=== PATIENT | male | born 1945 | race Caucasian/White ===

== ENCOUNTER 2020-06-13 13:56 | Inpatient (IN) | payer MEDICARE, BC ==
[~2020-06-13] VITALS: Ht 165.1 cm; Wt 84.4 kg
--- NOTE | 2020-06-13 14:17 | NUR ---
Switchboard Operator Assistant assumes care, 1st contact with patient: Our admission discharge rn William is giving this patient a full bath in ER bed 5. Patient is awake, alert, oriented to name, date & situation, denies any pains@the moment with dried feces and urine seen all over his skin, respiration:easy, patient is on 5150 psych HOLD today since 1106 am for gravely disabled & danger to self, pending MD evaluation
--- NOTE | 2020-06-13 14:35 | NUR ---
UNABLE TO OBTAIN HOME MEDICATION INFORMATION. PT DOES NOT REMEMBER HOME MEDS NAMES AND DOSAGES.
--- NOTE | 2020-06-13 14:48 | NUR ---
MD@bedside, medical screening exam in progress
[2020-06-13 15:18] LABS: BASOPHILS % (AUTO) 0.4 % (0.0-2.0); EOSINOPHILS # (AUTO) 0.1 K/uL (0.0-0.7); EOSINOPHILS % (AUTO) 0.9 % (0.0-7.0); HEMATOCRIT 45.4 % (36.7-47.1); HEMOGLOBIN 15.5 g/dL (12.5-16.3); LYMPHOCYTES # (AUTO) 0.8 K/uL (20.0-40.0); LYMPHOCYTES % (AUTO) 9.9 % (20.5-51.5); MEAN CORPUSCULAR HEMOGLOBIN 31.2 uug (23.8-33.4); MEAN CORPUSCULAR HGB CONC 34 g/dL (32.5-36.3); MEAN CORPUSCULAR VOLUME 91.3 fL (73.0-96.2); MONOCYTES % (AUTO) 12.5 % (0.0-11.0); NEUTROPHILS # (AUTO) 6.4 K/uL (1.8-8.9); NEUTROPHILS % (AUTO) 76.3 % (38.5-71.5); PLATELET COUNT (AUTO) 162 K/uL (152-348); RED BLOOD CELL COUNT(AUTO) 4.97 MIL/uL (4.06-5.63); WHITE BLOOD COUNT (AUTO) 8.4 K/uL (3.6-10.2)
[2020-06-13 15:22] LABS: ALANINE AMINOTRANSFERASE 30 U/L (16-63); ALKALINE PHOSPHATASE 77 U/L (50-136); ASPARTATE AMINOTRANSFERASE 27 U/L (15-37); BILIRUBIN,DIRECT 0.2 mg/dL (0.0-0.2); BILIRUBIN,TOTAL 0.5 mg/dL (0.2-1.0); CARBON DIOXIDE 29 mmol/L (21-32); CHLORIDE 97 mmol/L (98-107); CREATINE KINASE, TOTAL 25 U/L (39-308); GLUCOSE 135 mg/dL (74-106); TOTAL PROTEIN, SERUM 7.4 g/dL (6.4-8.2); UREA NITROGEN, BLOOD 27 mg/dL (7-18)
[2020-06-13 15:26] LABS: ACETAMINOPHEN < 2.0 ug/mL (10-30)
[2020-06-13 15:27] LABS: ETHANOL < 3 MG/DL (0-0)
[2020-06-13 15:29] LABS: THYROID STIMULATING HORMONE 1.705 mIU/mL (0.358-3.740)
--- NOTE | 2020-06-13 15:44 | NUR ---
Patient is medically cleared by Dr Degroot.
--- NOTE | 2020-06-13 16:04 | NUR ---
Patient is now eating hot food tray with good appetite. Patient will go to [facility] as soon as possible.
[2020-06-13 16:30] VITALS: BP 112/45
[2020-06-13] MEDS ORDERED: ACETAMINOPHEN 325 MG TABLET PO PRN (16:30)
[2020-06-13] MEDS ORDERED: LORAZEPAM 0.5 MG TABLET PO PRN (16:30)
[2020-06-13] MEDS ORDERED: MAG HYDROX/AL HYDROX/SIMETH 30 ML LIQUID UDC PO PRN (16:30)
[2020-06-13] MEDS ORDERED: MAGNESIUM HYDROXIDE 30 ML LIQUID UDC PO PRN (16:30)
[2020-06-13] MEDS ORDERED: BLOOD SUGAR DIAGNOSTIC 1 EACH STRIP VI ONE (16:30)
[2020-06-13] MEDS ORDERED: TEMAZEPAM 7.5 MG CAPSULE PO PRN (16:30)
--- NOTE | 2020-06-13 16:30 | NUR ---
Pt received from ER at 1620 via wheelchair. Report obtained from AYLIN Franco. Per hold, pt was refusing to get out of his bed, not leaving his room. When Pt arrived in ER, per nursing staff, pt was covered in dry feces and was severely malodorous and unkempt. Upon face to face evaluation, pt is not cooperating, tells the staff to go away. Pt refused his family to be notified and refused to sigh paperwork. Pt does not say why he was brought in and covers his face. Pt is oriented to self.
[2020-06-13 20:00] VITALS: BP 148/64
--- NOTE | 2020-06-14 06:22 | NUR ---
GPS: Remain calm and cooperative with meds and care. incontinent assisted with adl's. kept clean and dry. slept 9.15 hrs through the night. continue plan of care.
[2020-06-14 07:30] VITALS: BP 145/76
[2020-06-14] MEDS ORDERED: DEXTROSE 50% 50 ML DISP.SYRIN IV PRN (10:00)
[2020-06-14] MEDS: BLOOD SUGAR DIAGNOSTIC 1 EACH STRIP VI SCH ×3 (11:30→21:00)
[2020-06-14] MEDS: OLANZAPINE 5 MG TABLET PO SCH ×2 (12:45→21:00)
[2020-06-14 16:00] VITALS: BP 124/81
--- NOTE | 2020-06-14 16:40 | NUR ---
GPS: Nursing Notes: Destructive Behavior to Self: Patient is awake and responding to his name, impaired judgment, resistant with nursing care, poor grooming, gets easily irritable when redirected, refusing his accu-checks, stated "Leave alone...Man..", gets easily argumentative, no interactions with his roommates, evasive when questioned by staff, unable to formulate a viable plan for self care, continue with treatment plan.
--- NOTE | 2020-06-14 20:00 | NUR ---
RECEIVED PATIENT IN HIS ROOM. HE IS NOTED SLEEPING BUT EASILY AROUSABLE. PT NOTED EASILY IRRITABLE, EVASIVE, ISOLATIVE AND WITHDRAWN TO HIS ROOM. HE IS UNABLE TO HAVE A MEANINGFUL CONVERSATION WITH THIS DAMASCENER. HE STATED, "GET OUT". "I DON'T NEED TO TALK TO YOU". PATIENT WAS REASSURED AND REORIENTED, HE IS NOTED WITH POOR INSIGHT AND JUDGMENT TO THE REASON FOR HER ADMISSION TO [facility]. PATIENT V/S STABLE/ HE IS REASSURED FOR HIS SAFETY. SAFETY AND FALL PRECAUTION IN PLACE. WILL CONTINUE TO MONITOR.
[2020-06-14 20:18] VITALS: BP 136/78
--- NOTE | 2020-06-14 22:00 | NUR ---
PATIENT REFUSED ZYPREXA 5MG Q12HRS. HE ALSO REFUSED ACCUCHECKS. THE IMPORTANCE OF COMPLIANT WITH MEDICATION REGIMENT AND LABS TO IMPROVED SXS WERE EXPLAINED TO PATIENT, YET REFUSED. HE IS REASSURED FOR HIS SAFETY. SAFETY AND FALL PRECAUTION IN PLACE, WILL CONTINUE TO MONITOR.
[2020-06-15] MEDS: BLOOD SUGAR DIAGNOSTIC 1 EACH STRIP VI SCH ×4 (06:32→21:00)
--- NOTE | 2020-06-15 07:23 | NUR ---
patient slept for approx 6 hrs through the night. He was able to comply with Accu ckeck (205). patient noted less irritable. able to verbalized feelings. Shower given. will continue to monitor.
[2020-06-15] MEDS: INSULIN REGULAR, HUMAN 300 UNIT/3 ML VIAL SQ PRN (08:19)
[2020-06-15] MEDS: OLANZAPINE 5 MG TABLET PO SCH ×2 (08:35→21:00)
[2020-06-15] MEDS: OLANZAPINE 2.5 MG TABLET PO SCH ×2 (12:32→13:45)
[2020-06-15] MEDS ORDERED: OLANZAPINE 5 MG TABLET PO SCH ×2 (13:00)
--- NOTE | 2020-06-15 14:51 | NUR ---
GPS: Nursing Notes: Destructive Behavior to Self: Patient is awake and responding to his name, poor anger management, gets easily irritable when redirected, refusing his medications this am stated "Get the fuck out here.. I want to sleep..", unkempt appearance, ambulatory, but moving around on wheelchair, refusing to participate in therapeutic groups, believes that he is leaving today, stated "I am fine.. I am leaving..", unable to formulate a viable plan for self care, loud and pressured speech at times, continue with treatment plan.
[2020-06-15] MEDS: GLUCERNA SHAKE VANILLA 237 ML CAN PO SCH (17:01)
[2020-06-15] MEDS: Z GUARD REMEDY PASTE 57 GM TUBE TOP PRN (17:52)
[2020-06-16 07:30] VITALS: BP 146/60
[2020-06-16] MEDS: BLOOD SUGAR DIAGNOSTIC 1 EACH STRIP VI SCH ×4 (07:32→21:00)
[2020-06-16] MEDS: OLANZAPINE 2.5 MG TABLET PO SCH ×2 (08:31→13:08)
[2020-06-16] MEDS: INSULIN REGULAR, HUMAN 300 UNIT/3 ML VIAL SQ PRN (08:32)
[2020-06-16] MEDS: Z GUARD REMEDY PASTE 57 GM TUBE TOP PRN (08:32)
[2020-06-16] MEDS: GLUCERNA SHAKE VANILLA 237 ML CAN PO SCH ×2 (08:32→17:23)
--- NOTE | 2020-06-16 10:47 | NUR ---
LESLIE Family Contact: LESLIE spoke with , Jeannine ([phone]) and discussed treatment and discharge plan. Jeannine also provided collateral information.
--- NOTE | 2020-06-16 10:47 | NUR ---
LESLIE Initial Discharge Plan: Patient currently resides at home [address] [place] [address] with , Jeannine ([phone]). LESLIE spoke with patient's and she would like patient to return home upon discharge and she will pick him up. LESLIE will continue to work with patient, family, and MD to ensure a safe and proper discharge plan.
--- NOTE | 2020-06-16 10:50 | NUR ---
Firearms Report: Flake Miller Helper completed and submitted a [employer] firearms report for 5150 danger to himself and grave disability certifications. A copy of report has been placed in patient chart.
[2020-06-16] MEDS ORDERED: ROSU20TA2 PO (13:43)
--- NOTE | 2020-06-16 14:37 | NUR ---
WOUND CARE CONSULT: PT PRESENTS WITH RASH TO BUTTOCKS, PRESENT ON ADMISSION. PT HAS BEEN SCRATCHING HIS BUTTOCKS PER NURSES. RECOMMENDATIONS MADE FOR SKIN CARE AND PROTECTION. DISCUSSED WITH NURSING STAFF. PT ALSO NOTED TO HAVE LEFT DISTAL 4TH TOE ABRASION. DISCUSSED WITH DR QUIJANO, CURRENTLY ON CASE. ORDER RECEIVED FOR BETADINE DAILY. DISCUSSED WITH NURSING STAFF. IN AGREEMENT WITH PLAN OF CARE. Addendum: 06/16/20 at 1439 by BERNABE NIÑO RN Amended: Links added.
[2020-06-16 16:00] VITALS: BP 130/61
[2020-06-16] MEDS: CLOTRIMAZOLE 1% CREAM 30 GM TUBE TOP SCH (17:23)
[2020-06-16 20:27] VITALS: BP 145/70
[2020-06-16] MEDS: OLANZAPINE 5 MG TABLET PO SCH (21:00)
--- NOTE | 2020-06-16 22:00 | NUR ---
RECEIVED PATIENT IN HIS ROOM IN BED ASLEEP. HE IS NOTED EASILY AROUSABLE. NOTED A/O X 1. POOR HISTORIAN, EASILY IRRITABLE, UNCOOPERATIVE. UNABLE TO HAVE A MEANINGFUL CONVERSATION. HE REFUSED ZYPREXA AND ACCUCHECKS. HE IS REASSURED FOR HIS SAFETY. SAFETY AND FALL PRECAUTION IN PLACE. WILL CONTINUE TO MONITOR.
[2020-06-17] MEDS: Z GUARD REMEDY PASTE 57 GM TUBE TOP PRN (04:40)
[2020-06-17] MEDS: BLOOD SUGAR DIAGNOSTIC 1 EACH STRIP VI SCH ×4 (06:45→20:13)
[2020-06-17 07:30] VITALS: BP 144/68
[2020-06-17] MEDS: METFORMIN HCL 500 MG TABLET PO SCH ×2 (08:15→17:31)
[2020-06-17] MEDS: OLANZAPINE 5 MG TABLET PO SCH ×3 (08:15→20:11)
[2020-06-17] MEDS: GLIMEPIRIDE 2 MG TABLET PO SCH (08:15)
[2020-06-17] MEDS: GLUCERNA SHAKE VANILLA 237 ML CAN PO SCH ×2 (08:16→16:28)
[2020-06-17] MEDS: CLOTRIMAZOLE 1% CREAM 30 GM TUBE TOP SCH ×2 (08:16→16:28)
--- NOTE | 2020-06-17 08:30 | NUR ---
RECEIVED PATIENT IN HIS BED EATING BREAKFAST WAS COMPLIANT WITH MEDICATIONS AND CARE EASILY IRRITATED DID NOT WANT TO ANSWER ANY QUESTIONS BUT WAS ENCOURAGED TO GET OUT OF ROOM WHEN ABLE AND PARTICIPATE IN ACTIVITIES WILL CONTINUE TO OBSERVE AND PROVIDE SAFE AND THERAPEUTIC ENVIRONMENT AT ALL TIMES.
[2020-06-17] MEDS: INSULIN REGULAR, HUMAN 300 UNIT/3 ML VIAL SQ PRN (11:27)
[2020-06-17 16:44] VITALS: BP 147/72
[2020-06-17 20:16] VITALS: BP 129/52
--- NOTE | 2020-06-18 00:32 | NUR ---
GPS: Pt.still awake at this time. Restoril 7.5mg offered but strongly refused. Easily irritable when being persuaded. Quiet environment provided to facilitate sleep. Will continue to monitor.
[2020-06-18] MEDS: BLOOD SUGAR DIAGNOSTIC 1 EACH STRIP VI SCH ×4 (06:38→20:27)
[2020-06-18 07:30] VITALS: BP 154/71
[2020-06-18] MEDS: GLIMEPIRIDE 2 MG TABLET PO SCH (08:32)
[2020-06-18] MEDS: METFORMIN HCL 500 MG TABLET PO SCH ×2 (08:32→18:21)
[2020-06-18] MEDS: OLANZAPINE 5 MG TABLET PO SCH ×3 (08:33→20:26)
[2020-06-18] MEDS: CLOTRIMAZOLE 1% CREAM 30 GM TUBE TOP SCH ×2 (08:33→17:00)
[2020-06-18] MEDS: GLUCERNA SHAKE VANILLA 237 ML CAN PO SCH ×2 (08:34→17:00)
[2020-06-18] MEDS: INSULIN REGULAR, HUMAN 300 UNIT/3 ML VIAL SQ PRN ×3 (12:10→20:30)
--- NOTE | 2020-06-18 12:56 | NUR ---
SW Individual Therapy Note: SW met with patient today and provided brief individual counseling to address patient's presenting problem of neglecting self-care, bathing, and grooming. SW encourage patient to continue to participate in self-care and cooperate with his treatment. Patient presents agitated and refuses to engage in a meaningful conversation. Patient makes verbally abusive comments and demeanor. SW will remain available for patient for continued supportive counseling.
--- NOTE | 2020-06-18 15:51 | NUR ---
LESLIE PC Hearing: Patient had 5250 probable cause hearing today and it was upheld for danger to self and grave disability.
[2020-06-18 16:00] VITALS: BP 138/82
[2020-06-18 20:20] VITALS: BP 148/74
--- NOTE | 2020-06-19 03:18 | NUR ---
RECEIVED PATIENT IN HIS ROOM AWAKE. EASILY IRRITABLE, AND ISOLATIVE. UNABLE TO HAVE A MEANINGFUL CONVERSATION. HE TOOK HIS MEDICATION BUT INITIALLY POCKETED IT IN HIS CHEEKS.HE LATER TOOK IT WHEN HE WAS CALLED OUT FOR IT. BS CHECK WAS 250 AND COVERAGE GIVEN. VISUAL CHECKS MADE ON HER FOR SAFETY. WILL CONTINUE TO MONITOR.
[2020-06-19] MEDS: BLOOD SUGAR DIAGNOSTIC 1 EACH STRIP VI SCH ×4 (06:35→20:26)
--- NOTE | 2020-06-19 06:53 | NUR ---
HE SLEPT WELL FOR 9:00 HOURS. UP IN BED AND GIVEN A BED BATH. BLOOD SUGAR CHECK WAS 176.
[2020-06-19 07:30] VITALS: BP 136/69
[2020-06-19] MEDS: METFORMIN HCL 500 MG TABLET PO SCH ×2 (08:33→17:24)
[2020-06-19] MEDS: GLIMEPIRIDE 2 MG TABLET PO SCH (08:33)
[2020-06-19] MEDS: OLANZAPINE 5 MG TABLET PO SCH ×3 (08:33→20:15)
[2020-06-19] MEDS: INSULIN REGULAR, HUMAN 300 UNIT/3 ML VIAL SQ PRN ×3 (08:44→20:26)
[2020-06-19] MEDS: GLUCERNA SHAKE VANILLA 237 ML CAN PO SCH (08:44)
[2020-06-19] MEDS: CLOTRIMAZOLE 1% CREAM 30 GM TUBE TOP SCH ×2 (08:46→17:24)
[2020-06-19 15:32] VITALS: BP 101/59
[2020-06-19 20:29] VITALS: BP 140/74
--- NOTE | 2020-06-20 06:06 | NUR ---
GPS: Pt.slept for 6 hrs.last night. Remains paranoid and suspicious. No increased agitation noted. Blood sugar at this time is 134mg/dl. No s/s of glycemic reactions noted. Safety emphasized. Will continue to monitor.
[2020-06-20] MEDS: BLOOD SUGAR DIAGNOSTIC 1 EACH STRIP VI SCH ×4 (06:12→21:09)
[2020-06-20 07:30] VITALS: BP 159/72
[2020-06-20] MEDS: GLIMEPIRIDE 2 MG TABLET PO SCH (08:39)
[2020-06-20] MEDS: METFORMIN HCL 500 MG TABLET PO SCH ×2 (08:39→17:50)
[2020-06-20] MEDS: OLANZAPINE 5 MG TABLET PO SCH ×3 (08:39→21:08)
[2020-06-20] MEDS: CLOTRIMAZOLE 1% CREAM 30 GM TUBE TOP SCH ×2 (08:40→17:06)
[2020-06-20] MEDS: GLUCERNA SHAKE VANILLA 237 ML CAN PO SCH (08:47)
[2020-06-20] MEDS: INSULIN REGULAR, HUMAN 300 UNIT/3 ML VIAL SQ PRN ×3 (12:41→21:08)
[2020-06-20 16:00] VITALS: BP 126/68
[2020-06-20 20:27] VITALS: BP 114/50
[2020-06-21] MEDS: BLOOD SUGAR DIAGNOSTIC 1 EACH STRIP VI SCH ×4 (06:38→20:39)
[2020-06-21 07:30] VITALS: BP 128/66
[2020-06-21] MEDS: METFORMIN HCL 500 MG TABLET PO SCH ×2 (09:28→18:02)
[2020-06-21] MEDS: GLIMEPIRIDE 2 MG TABLET PO SCH (09:28)
[2020-06-21] MEDS: OLANZAPINE 5 MG TABLET PO SCH ×3 (09:28→20:08)
[2020-06-21] MEDS: CLOTRIMAZOLE 1% CREAM 30 GM TUBE TOP SCH ×2 (09:29→17:03)
[2020-06-21] MEDS: GLUCERNA SHAKE VANILLA 237 ML CAN PO SCH (09:29)
[2020-06-21] MEDS: INSULIN REGULAR, HUMAN 300 UNIT/3 ML VIAL SQ PRN ×2 (12:59→20:40)
[2020-06-21 15:27] VITALS: BP 124/74
[2020-06-21 20:27] VITALS: BP 126/68
[2020-06-22] MEDS: Z GUARD REMEDY PASTE 57 GM TUBE TOP PRN (02:25)
[2020-06-22] MEDS: BLOOD SUGAR DIAGNOSTIC 1 EACH STRIP VI SCH ×4 (06:40→20:55)
--- NOTE | 2020-06-22 06:40 | NUR ---
Patient slept for approx. 6 hrs through the night. He continue compliant with medication regiment, able to accept care. No aggressive/combative bx noted during the shift. will continue to monitor.
[2020-06-22 07:30] VITALS: BP 101/60
[2020-06-22] MEDS: METFORMIN HCL 500 MG TABLET PO SCH ×2 (08:50→17:08)
[2020-06-22] MEDS: OLANZAPINE 5 MG TABLET PO SCH ×3 (08:50→20:55)
[2020-06-22] MEDS: CLOTRIMAZOLE 1% CREAM 30 GM TUBE TOP SCH ×2 (08:50→16:59)
[2020-06-22] MEDS: GLIMEPIRIDE 2 MG TABLET PO SCH (08:50)
[2020-06-22] MEDS: GLUCERNA SHAKE VANILLA 237 ML CAN PO SCH (08:51)
[2020-06-22] MEDS: INSULIN REGULAR, HUMAN 300 UNIT/3 ML VIAL SQ PRN (12:19)
--- NOTE | 2020-06-22 12:22 | NUR ---
[facility]IE SNF Referral: LESLIE faxed patient's referral packet to [facility] ([phone]) attention to Mad[place]. Addendum: 06/22/20 at 1448 by SERGEY GARNICA Patient is accepted at facility for placement.
[2020-06-22 15:28] VITALS: BP 137/67
[2020-06-22 20:23] VITALS: BP 108/65
--- NOTE | 2020-06-23 05:31 | NUR ---
GPS: patient Remains calm and cooperative. No increased agitation noted. assisted with adl's. Safety emphasized. Will continue to monitor.
--- NOTE | 2020-06-23 05:59 | NUR ---
GPS: Pt.slept for 7 hrs through the night.
[2020-06-23] MEDS: BLOOD SUGAR DIAGNOSTIC 1 EACH STRIP VI SCH ×4 (06:49→20:37)
[2020-06-23 08:28] VITALS: BP 104/64
[2020-06-23] MEDS: METFORMIN HCL 500 MG TABLET PO SCH ×2 (08:47→17:05)
[2020-06-23] MEDS: GLIMEPIRIDE 2 MG TABLET PO SCH (08:47)
[2020-06-23] MEDS: OLANZAPINE 5 MG TABLET PO SCH ×3 (08:48→20:31)
[2020-06-23] MEDS: GLUCERNA SHAKE VANILLA 237 ML CAN PO SCH (08:48)
[2020-06-23] MEDS: CLOTRIMAZOLE 1% CREAM 30 GM TUBE TOP SCH ×2 (08:48→16:50)
[2020-06-23 16:00] VITALS: BP 139/57
[2020-06-23 20:15] VITALS: BP 126/69
--- NOTE | 2020-06-24 01:55 | NUR ---
RECEIVED PATIENT IN HIS ROOM AWAKE. STILL ISOLATIVE WITH LOW MOOD. HE IS MEDICATION COMPLIANT. BS CHECK WAS 89 AND WAS ENCOURAGED TO EAT SOME DINNER AND FRUITS. VISUAL CHECKS MADE ON HER FOR SAFETY. WILL CONTINUE TO MONITOR.
--- NOTE | 2020-06-24 06:52 | NUR ---
SLEPT 7:15 HOURS. BLOOD SUGAR CHECK WAS INITIALLY 65, ORANGE JUICE WAS GIVEN AND RECHECKED. IT WAS 84.
[2020-06-24] MEDS: BLOOD SUGAR DIAGNOSTIC 1 EACH STRIP VI SCH (06:56)
[2020-06-24 07:30] VITALS: BP 101/52
[2020-06-24] MEDS: METFORMIN HCL 500 MG TABLET PO SCH (08:00)
[2020-06-24] MEDS: GLIMEPIRIDE 2 MG TABLET PO SCH (08:00)
--- NOTE | 2020-06-24 08:00 | NUR ---
Discharge Note: Patient will be discharged [facility] [address] [facility] [address] ([phone]). Patient will be provided with ambulance transportation today at 12pm. Spoke with petty Coughlin at the facility and Fermin, accounts payable coordinator who state they are ready to accept the patient today. Patient is aware and agreeable with discharge plans and presents with appropriate mood and congruent affect. Patient is alert and oriented x3, is unable to plan for self-care, however, is willing to received care provided for him at [facility]. Patient denies any suicidal or homicidal ideation. Patient will follow-up at the facility with Psychiatrist Dr. Lane and Pneumatic Tester Dr. Butcher. Patients , Jeannine ([phone]) is made aware and is agreeable with discharge plan.
[2020-06-24] MEDS: OLANZAPINE 5 MG TABLET PO SCH (08:23)
[2020-06-24] MEDS: GLUCERNA SHAKE VANILLA 237 ML CAN PO SCH (08:23)
[2020-06-24] MEDS: CLOTRIMAZOLE 1% CREAM 30 GM TUBE TOP SCH (08:24)
--- NOTE | 2020-06-24 12:15 | NUR ---
Patient discharged to [facility]. Patient alert and oriented x 2. No signs of acute distress. Vital signs stable. Discharge documents and medication list and patient belongings given. Left via ambulance gurney. ID band removed. Patient will follow-up with Psychiatrist Dr. Lane and Special Distribution Clerk Dr. Butcher at the facility. Report given to AYLIN Soto of [facility].
== END 2020-06-24 12:15 | DRG 885 ==
LOC: ER 13:58 → GPS 15:54
PROVIDERS: ADMIT Psychiatry & Neurology Psychosomatic Medicine; ATTEND Internal Medicine
PROC: 0HBRXZZ Excision of Toe Nail, External Approach (ICD-10-PCS; principal; 2020-06-16)
DX: F29 Unspecified psychosis not due to a substance or known physiological condition (principal); E11.65 Type 2 diabetes mellitus with hyperglycemia; I10 Essential (primary) hypertension; E11.42 Type 2 diabetes mellitus with diabetic polyneuropathy; B35.1 Tinea unguium; E66.9 Obesity, unspecified; F03.90 Unspecified dementia, unspecified severity, without behavioral disturbance, psychotic disturbance, mood disturbance, and anxiety; Z68.31 Body mass index [BMI] 31.0-31.9, adult; F25.9 Schizoaffective disorder, unspecified; Z79.84 Long term (current) use of oral hypoglycemic drugs; Z20.822 Contact with and (suspected) exposure to COVID-19
CPT/HCPCS: 36415; 70450; 84443; 85025; 93005; A4663; G0480; J1815; J7030